=== PATIENT | male | born 1955 | race Caucasian/White ===

== ENCOUNTER 2020-07-23 07:34 | Day surgery (SDC) | payer MEDICAID ==
[~2020-07-23] VITALS: Ht 172.7 cm; Wt 85.0 kg
[2020-07-23 07:45] VITALS: BP 105/57
[2020-07-23 08:58] LABS: BASOPHILS % 0.8 % (0.0-2.0); EOSINOPHILS % 1.6 % (0.0-5.0); HEMOGLOBIN. 13.4 g/dL (14.0-18.0); LYMPHOCYTES % 35.4 % (20.0-50.0); MEAN CORPUSCULAR HEMOGLOBIN 31.4 pg (28.0-32.0); MEAN CORPUSCULAR VOLUME 93.5 fL (80.0-94.0); MEAN PLATELET VOLUME 8.2 fl (7.4-10.4); MONOCYTES % 9.2 % (2.0-8.0); PLATELET 288 x1000/uL (130-400); RED BLOOD CELL COUNT 4.28 mill/uL (4.7-6.1); RED CELL DISTRIBUTION WIDTH 13.3 % (11.6-14.6)
[2020-07-23] MEDS ORDERED: BALANCED SALT IRRIG SOLN 15ML ONE (09:00)
[2020-07-23] MEDS ORDERED: CIPROFLOXACIN 0.3% OPHTH SOLN 2.5ML ONE (09:00)
[2020-07-23] MEDS ORDERED: NEO/POLYMYX B SULF/DEXAMETH OPHTH OINT 3.5GM ONE (09:00)
[2020-07-23] MEDS ORDERED: PREDNISOLONE ACETATE 1% OPHTH DROPS 5ML ONE (09:00)
[2020-07-23] MEDS ORDERED: LIDOCAINE HCL/PF 2% 20 MG/ML 10ML VIAL ONE (09:00)
[2020-07-23] MEDS ORDERED: ACETYLCHOLINE CHLORIDE INTRAOCULAR SOLUTION 1:100 ELECTROLYTE DILUENT IO ONE (09:00)
[2020-07-23 09:04] LABS: PROTHROMBIN TIME 10.4 sec (9.6-11.0)
[2020-07-23 09:05] LABS: CHLORIDE 108 mEq/L (98-107)
[2020-07-23] MEDS ORDERED: HYALURONATE SODIUM 10 MG/ML 0.55ML SYRINGE IO ONE (09:28)
== END 2020-07-23 11:45 | disposition home or self-care (01) ==
LOC: EDSTATUS 07:34 → ER 07:34 → OR 09:23
PROVIDERS: ATTEND Ophthalmology
DX: H27.131 Posterior dislocation of lens, right eye (principal); F12.90 Cannabis use, unspecified, uncomplicated; T81.30XA Disruption of wound, unspecified, initial encounter; Y83.8 Other surgical procedures as the cause of abnormal reaction of the patient, or of later complication, without mention of misadventure at the time of the procedure
CPT/HCPCS: 36415; 66825; 80048; 85025; 85610; 93005; 99284; J3490